=== PATIENT | male | born 1950 | race Caucasian/White ===

== ENCOUNTER 2017-08-23 06:10 | Day surgery (SDC) | payer OTHER, MEDICARE ==
[~2017-08-23 06:10] MED LIST: VANCOMYCIN 1 GM in NS 250 ML IV ONE; VANCOMYCIN HCL/NORMAL SALINE 250 ML IV ONE
[2017-08-23] MEDS ORDERED: VANCOMYCIN PHARMACY TO DOSE MISC ONE (06:15)
[2017-08-23] MEDS ORDERED: LIDOCAINE 1% 2 ML INJ ID PRN (06:16)
[2017-08-23] MEDS ORDERED: LR 1,000 ML IV ONE (06:16)
[2017-08-23 06:40] VITALS: PULSE 58
[2017-08-23] MEDS ORDERED: BUPIVACAINE 0.5% 10 ML SDV ONE (07:09)
--- NOTE | 2017-08-23 07:46 | PDANEPAE ---
ANE History of Present Illness 67 yo male with ventral hernia after surgery. ANE Past Medical History - Cardiovascular History Hx Hypertension: No Hx Arrhythmias: No Hx Chest Pain: No Hx Coronary Artery / Peripheral Vascular Disease: No Hx CHF / Valvular Disease: No Hx Palpitations: No Cardiovascular History Comment: CARDIOMYOPATHY - mild LVH in 2015, HOCM per [employer]cher refinery report. thoracic aneurysm. seen at [facility] - Pulmonary History Hx COPD: No Hx Asthma/Reactive Airway Disease: No Hx Recent Upper Respiratory Infection: No Hx Oxygen in Use at Home: No Hx Sleep Apnea: No Sleep Apnea Screening Result - Last Documented: Negative Pulmonary History Comment: hx of PE following prostatectomy in 2014 - Neurologic History Hx Cerebrovascular Accident: No Hx Seizures: No Hx Dementia: No - Endocrine History Hx Diabetes: No Hypothyroid: Yes Hyperthyroid: No Endocrine History Comment: hypothyroidism - Renal History Hx Renal Disorders: No Renal History Comment: PROSTATE cancer 2015 s/p prostatectomy - Liver History Hx Hepatic Disorders: No - Neurological & Psychiatric Hx Hx Neurological and Psychiatric Disorders: No - Cancer History Hx Cancer: Yes Cancer History Comment: prostate with prostatectomy in 2014 - Congenital Disorder History Hx Congenital Disorders: No - GI History Hx Gastrointestinal Disorders: Yes Gastrointestinal History Comment: constipation with narcotics- 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 occ GERD only with tomatoes - Other Health History Other Health History: wears glasses - Chronic Pain History Chronic Pain: No - Surgical History Prior Surgeries: 04/17/15 prostatectomy with Melouk. TONSILLECTOMY. LEG FX R ANE Review of Systems Review of Systems: - Exercise capacity METS (RN): 3 METS - Systems Constitutional: Reports: no symptoms EENMT: Reports: no symptoms Cardiac: Reports: no symptoms Respiratory: Reports: no symptoms ANE Patient History - Allergies Allergies/Adverse Reactions: codeine Allergy (Verified 08/22/17 12:29) "makes me sick to my stomach" Penicillins Allergy (Verified 08/22/17 12:29) unknown- it's been so long since I've had it bee/ wasp stings Allergy (Uncoded 08/22/17 12:29) - Home Medications Home medications: home medication list seen and reviewed Home Medications: Multivitamins [Multivitamin (*)] DAILY 03/13/15 [Last Taken 08/22/17] [place]-3 Fatty Acids [Fish Oil 1000 mg (*)] DAILY 03/13/15 [Last Taken 08/22/17] Levothyroxine [Synthroid 88 mcg (*)] 08/22/17 [Last Taken 08/23/17 00:00] Verapamil [Calan 40MG (*)] TID 08/22/17 [Last Taken 08/22/17 21:00] - NPO status NPO Since - Liquids (Date): 08/22/17 NPO Since - Liquids (Time): 23:59 NPO Since - Solids (Date): 08/22/17 NPO Since - Solids (Time): 19:30 - Anes Hx Anes Hx: no prior problems - Smoking Hx Smoking Status: Never smoked Marijuana use: No - Alcohol Use Alcohol Use: Occasionally (1/day) - Family Anes Hx Family Anes Hx: neg - N/A Family Hx Anesthesia Complications: none ANE Labs/Vital Signs - Vital Signs Blood Pressure: 127/86 Heart Rate: 58 Respiratory Rate: 16 O2 Sat (%): 94 Height: 167.64 cm Weight: 77.111 kg ANE Physical Exam - Airway Neck exam: FROM Mallampati Score: Class 2 (short TMD) - Pulmonary Pulmonary: clear to auscultation - Cardiovascular Cardiovascular: bradycardia - ASA Status ASA Status: II ANE Anesthesia Plan Anesthesia Plan: general endotracheal anesthesia
[2017-08-23] MEDS ORDERED: DEXAMETHASONE 4 MG/ML VIAL ONE (07:55)
[2017-08-23] MEDS ORDERED: PROPOFOL/EMULSION 500 MG/50 ML BOTTLE IV ONE (07:55)
[2017-08-23] MEDS ORDERED: ROCURONIUM 50 MG/5 ML VIAL ONE (07:55)
[2017-08-23] MEDS ORDERED: LIDOCAINE 2% 5 ML SDV ONE (07:55)
[2017-08-23] MEDS ORDERED: fentaNYL 100 MCG/2 ML INJ ONE (07:55)
[2017-08-23] MEDS ORDERED: ONDANSETRON 4 MG/2 ML VIAL ONE (08:41)
[2017-08-23] MEDS ORDERED: PROMETHAZINE HCL 25 MG/ML INJ IVP PRN (08:56)
[2017-08-23] MEDS ORDERED: HYDROCODONE/APAP 5/325 TAB PO PRN (08:56)
[2017-08-23] MEDS ORDERED: NALOXONE HCL 0.4 MG/ML INJ IVP PRN (08:56)
[2017-08-23] MEDS ORDERED: ALBUTEROL 3 ML DEYVIAL IH PRN (08:56)
[2017-08-23] MEDS ORDERED: LR 500 ML IV PRN (08:56)
[2017-08-23] MEDS ORDERED: fentaNYL 100 MCG/2 ML INJ IVP PRN (08:56)
--- NOTE | 2017-08-23 09:23 | POSTANESTH ---
Post Anesthetic Evaluation Cardiovascular Status: Normal, Stable Respiratory Status: Normal, Stable Level of Consciousness/Mental Status: Moderately Sleepy Pain Control: Adequate, Prn Tx Ordered Nausea/Vomiting Control: Adequate, Prn Tx Ordered Complications Possibly Related to Anesthesia: None Noted
--- NOTE | 2017-08-23 09:43 | POSTOPPROG ---
Post Op Note Date of Operation: 08/23/17 Surgeon: Hal Yap [employer] Technician: MANNIE Anesthesiologist: MALAIKA Anesthesia: GET(General Endotracheal) Pre-op Diagnosis: VENTRAL AND UMBILICAL HERNIAS Post-op Diagnosis: SAME Indication: PAIN Procedure: VENTRAL AND UMBILICAL HERNIA WITH MESH Findings: 3CM VENTRAL WITH INCARCERATED OMENTUM AND 2CM UMBILICAL Inf/Abcess present in the surg proc area at time of surgery?: No Depth: Organ Space EBL: Minimal Complications: 0 Specimen(s): HERNIA SAC
[2017-08-23 09:44] VITALS: TEMP 96.8
[2017-08-23] MEDS ORDERED: OXYCODONE/APAP 5/325 TAB PO PRN (09:48)
[2017-08-23] MEDS ORDERED: ONDANSETRON DISINTEGRATING 4 MG TAB PO PRN (09:48)
[2017-08-23] MEDS ORDERED: ONDANSETRON 4 MG/2 ML VIAL IVP PRN (09:48)
[2017-08-23 10:27] VITALS: O2SAT 92
[2017-08-23 11:06] VITALS: BP 130/86; RESP 13
[2017-08-23] MEDS ORDERED: KETOROLAC 15 MG/1 ML SDV IVP SCH (12:00)
[2017-08-23] MEDS ORDERED: OXYCODONE/APAP 5/325 TAB ONE (12:42)
--- NOTE | 2017-09-04 17:39 | GOP ---
[f rep st] OPERATIVE REPORT DATE OF OPERATION: 08/23/2017 SURGEON: Hal Yap MD PLASMA CUTTING MACHINE OPERATOR: Hawa De Anda PA-C PREOPERATIVE DIAGNOSIS: Open ventral hernia and umbilical hernia. POSTOPERATIVE DIAGNOSIS: Open ventral hernia and umbilical hernia. PROCEDURE PERFORMED: Open repair with mesh of a ventral hernia and umbilical hernia. FINDINGS: The patient was found to have a 4 cm ventral hernia defect, but he also had a 1.5 cm umbil ical hernia defect. ESTIMATED BLOOD LOSS: Negligible. DESCRIPTION OF PROCEDURE: The patient was taken to the operating room, where he received satisfactor y general endotracheal anesthesia, placed in the supine position, prepped and draped in usual sterile fashion. A vertical incision was made through the previous old scar over the ventral hernia defect. This was circled slightly around the edge of the umbilicus. Dissection extended down to the fascia . The hernia sac was dissected free from surrounding subcutaneous tissue and off the back of the ski n. The sac was opened at the fascial edge. Excess sac was removed. The contents were reduced. Hem ostasis was assured. Palpating underneath, the umbilical defect was clearly identified and the umbil ical hernia sac was dissected free above the fascia and down to the fascial edges where it was also o pened and its contents were reduced. A subfascial tunnel was developed on either side of the ventral hernia defect and underneath the umbilical defect. A Covidien polyester mesh patch was placed in th e preperitoneal subfascial position after the peritoneum was closed with 3-0 Vicryl. It was then anc hored around the periphery with interrupted 0 Ethibond mattress sutures without difficulty. After co mpletion of that portion of the surgery, the fascial defect was then closed with multiple interrupted #1 Ethibond sutures, closing both defects in a single vertical line. Wounds were infiltrated with 0 .5% Marcaine. Subcu was closed with a running 2-0 Vicryl and the skin with a 4-0 Monocryl subcuticul ar suture. All layers were infiltrated with 0.5% Marcaine. COMPLICATIONS: There were no complications. DISPOSITION: He was taken to the recovery room in good condition. /[id number]/MODL
== END 2017-08-23 13:18 | disposition home or self-care (01) ==
LOC: FSGY 06:10
PROVIDERS: ATTEND Surgery
PROC: 0WUF0JZ Supplement Abdominal Wall with Synthetic Substitute, Open Approach (ICD-10-PCS; principal; 2017-08-23 08:00)
PROC: 0WQF0ZZ Repair Abdominal Wall, Open Approach (ICD-10-PCS; principal; 2017-08-23 08:00)
DX: K43.6 Other and unspecified ventral hernia with obstruction, without gangrene (principal); K42.9 Umbilical hernia without obstruction or gangrene; I71.2 Thoracic aortic aneurysm, without rupture; I42.2 Other hypertrophic cardiomyopathy; E03.9 Hypothyroidism, unspecified; Z85.46 Personal history of malignant neoplasm of prostate; Z86.711 Personal history of pulmonary embolism; Z88.0 Allergy status to penicillin
CPT/HCPCS: C1781; J1100; J2405; J2704; J3010; J3370